=== PATIENT | female | born 1980 | race Caucasian/White ===

== ENCOUNTER 2020-08-05 18:15 | Emergency (ER) | payer BC, SELFPAY ==
--- NOTE | ~2020-08-05 | XR_ITS ---
XR tibia fibula RT 2V DATE: 08/05/2020 18:58 INDICATION: Fall downstairs. Laceration of proximal anterior tibia and fibula. Bruising. TECHNIQUE: AP and lateral views COMPARISON: None FINDINGS: There is a prominent laceration of the proximal lower leg at the anterior aspect of the ant erior tibial tuberosity. No radiopaque soft tissue foreign body. No fracture, dislocation, periosteal reaction or bone destruction. Normal alignment at the knee and ankle joints. IMPRESSION: Prominent upper anterior lower leg soft tissue laceration Reviewed, dictated and finalized at location A. ERTY ADJUSTER
--- NOTE | ~2020-08-05 | XR_ITS ---
XR ankle LT min 3V DATE: 08/05/2020 18:58 INDICATION: Fall downstairs. Anterior and lateral tarsal swelling, pain TECHNIQUE: 4 views of left ankle COMPARISON: None FINDINGS: Mild plantar and minimal posterior calcaneal enthesopathy. No fracture or dislocation of the ankle or disruption of the ankle mortise. No periosteal reaction or bone destruction. IMPRESSION: Calcaneal enthesopathy No fracture or dislocation Reviewed, dictated and finalized at location A. ENE OPERATOR
[2020-08-05 18:25] VITALS: BP 185/104; PULSE 109; RESP 16; TEMP 36.9; O2SAT 99
--- NOTE | 2020-08-05 18:38 | ED.LOWEXIN ---
HPI - Extremity Injury (Lower) General Chief Complaint: Extremity Injury, Lower Stated Complaint: right lower leg lac and left ankle injury Time Seen by Provider: 08/05/20 18:39 Source: patient and RN notes reviewed Mode of arrival: ambulatory Limitations: no limitations History of Present Illness HPI Narrative: 37 year old female who presents to [facility] care with complaints of falling down 3 steps going from kitchen area to garage within the past 45 minutes at her home. Ptient has injury to the left lateral ankle with some edema noted to lateral region of left foot an ankle, mobility of ankle intact but with pain. strong left pedal an posterior tibial pulses present with foot warm and pink. Patient has 5.5cm laceration to her right lower leg below her patella with bleeding presently controlled with abrasions noted to dorsal aspect of her lower leg, patient has full mobility of her knee. Patient reports that her tetanus is up to date. Patient denies any other injury did not hit her head and denies any LOC. MD complaint: knee injury (RIGHT KNEE) and ankle injury (LEFT) Onset (ago): hour(s) (within past 45 minutes prior to arrival) Type of Injury: laceration and other Place: home Severity scale (1-10): 5 Relieving factors: rest Exacerbating factors: weight bearing and movement Context: fall (down three steps) and direct blow Treatments prior to arrival: bandage Related Data Home Medications Medication Instructions Recorded Confirmed losartan-hydrochlorothiazide 1 tablet PO DAILY 08/05/20 08/05/20 Allergies Allergy/AdvReac Type Severity Reaction Status Date / Time Penicillins Allergy Intermediate Hives / Unverified 11/03/18 17:12 Red Face amoxicillin Allergy Unknown Hives Verified 08/05/20 18:42 Cephalosporins Allergy Unknown RASH Unverified 11/03/18 17:12 Review of Systems Review of Systems: Narrative: CONSTITUTIONAL: Denies fever, chills, or sweats. EYES: Denies visual changes, redness, or discharge. ENT: Denies rhinorrhea, congestion, sore throat, or otalgia. CARDIOVASCULAR: Denies chest pain, palpitations, or edema. RESPIRATORY: Denies cough or dyspnea. GASTROINTESTINAL: Denies abdominal pain, nausea, vomiting, or diarrhea. GENITOURINARY: Denies dysuria or hematuria. SKIN: Denies rash or itching Laceration to area below right knee with abrasions on anterior lower leg. Pain to left lateral ankle with small area of swelling, no deformity. with strong pulses MUSCULOSKELETAL: Denies back pain, joint pain, or myalgia. NEUROLOGIC: Denies headache, numbness, or weakness. PSYCHIATRIC: Denies anxiety or depression. All systems reviewed & are unremarkable except as noted in HPI and below PMFSH Past Medical History Medical History (Updated 08/06/20 @ 00:00 by David Gomez) Hypertension Right flank mass Surgical History Surgical History (Updated 08/05/20 @ 19:02 by Mary Pat NP) History of tubal ligation Family History Family History (Updated 08/05/20 @ 19:03 by Mary Pat NP) Mother Carcinoma of colon Hypertension Heart disease Grandparent Heart disease Social History Social History (Updated 08/05/20 @ 18:53 by Mary Pat NP) Smoking packs per day: 0.5 Smoking cigarettes per day: 10.0 Years smoked: 11 Smoking pack-years: 5.50 Smoking status: Current every day smoker Tobacco type: cigarettes Alcohol intake: current Alcohol use details: social Substance use: never Living arrangements: with family Gender identity (if verbalized by the patient): Female Comments At time of signature, agree with nursing past medical, surgical, social and family history. There is no relevant family history pertinent to the presenting complaint Exam Narrative: Exam Narrative: GENERAL: Well-appearing, well-nourished, and in some acute distress due to injuries and pain. HEAD: Normocephalic, atraumatic. EYES: PERRLA and EOMI. ENT: Nares clear, no rhinorrhea or epistaxis.
[2020-08-05 18:43] VITALS: BP 185/104; PULSE 109; RESP 16; TEMP 36.9; O2SAT 99
== END 2020-08-05 19:58 | disposition home or self-care (01) ==
PROVIDERS: Emergency Provider Registered Nurse; PCP Nurse Practitioner Family
DX: S93.402A Sprain of unspecified ligament of left ankle, initial encounter (principal); S96.912A Strain of unspecified muscle and tendon at ankle and foot level, left foot, initial encounter; W10.9XXA Fall (on) (from) unspecified stairs and steps, initial encounter; S81.011A Laceration without foreign body, right knee, initial encounter; F17.210 Nicotine dependence, cigarettes, uncomplicated; I10 Essential (primary) hypertension
CPT/HCPCS: 12002; 73590; 73610; 99214; G0463

== ENCOUNTER 2021-06-14 19:06 | Emergency (ER) | payer OTHER, SELFPAY ==
[2021-06-14 19:12] VITALS: BP 150/79; PULSE 108; RESP 16; TEMP 36.6; O2SAT 100
[2021-06-14 19:28] VITALS: BP 150/79; PULSE 108; RESP 16; TEMP 36.6; O2SAT 100
--- NOTE | 2021-06-14 19:47 | ED.GENADULT ---
HPI - General Adult General Chief complaint: Skin/Abscess/Foreign Body Stated complaint: possible shingles Source: patient Mode of arrival: ambulatory Limitations: no limitations History of Present Illness HPI narrative: Mrs Morales is a pleasant 40 y/o female. Presents to [facility] this evening with acute complaints of a painful rash located to her RT upper torso. Client reports to have been exposed to her Mother whom has been diagnosed with 'Shingles'. She tells me that her symptoms started this AM as a prodromal effect, she began experiencing a 'burning and stinging' sensation, and now increased pain to areas. Worse with touch. No neurological disruption. No ocular or facial involvement. She denies fever, chills, myalgias. No additional acute c/o illness upon PE. Related Data Home Medications Medication Instructions Recorded Confirmed losartan-hydrochlorothiazide 1 tablet PO DAILY 08/05/20 06/14/21 Allergies Allergy/AdvReac Type Severity Reaction Status Date / Time Penicillins Allergy Intermediate Hives / Verified 06/14/21 19:28 Red Face amoxicillin Allergy Unknown Hives Verified 06/14/21 19:28 Cephalosporins Allergy Unknown RASH Verified 06/14/21 19:28 Review of Systems Review of Systems: CONSTITUTIONAL: Denies fever, chills, sweats. EYES: Denies visual changes, redness, discharge. ENT: Denies rhinorrhea, congestion, sore throat, otalgia. CARDIOVASCULAR: Denies chest pain, palpitations, edema. RESPIRATORY: Denies dyspnea, wheezing, cough GASTROINTESTINAL: Denies abdominal pain, nausea, vomiting, diarrhea. GENITOURINARY: Denies dysuria, hematuria, abnormal discharge SKIN: Painful Rash RT side Torso. MUSCULOSKELETAL: Denies acute back pain, joint pain, or myalgia. NEUROLOGIC: Denies numbness, or focal weakness. PSYCHIATRIC: Denies anxiety or depression. All systems reviewed & are unremarkable except as noted in HPI and below PMFSH Past Medical History Medical History Hypertension Right flank mass Surgical History Surgical History History of tubal ligation Family History Family History Mother Carcinoma of colon Hypertension Heart disease Grandparent Heart disease Social History Social History Smoking packs per day: 0.5 Smoking cigarettes per day: 10.0 Years smoked: 11 Smoking pack-years: 5.50 Smoking status: Current every day smoker Tobacco type: cigarettes Alcohol intake: current Alcohol use details: social Substance use: never Gender identity (if verbalized by the patient): Female Exam Narrative: GENERAL: This is a well-nourished, well-developed adult, in no apparent distress. HEAD: normocephalic, atraumatic. EYES: PERRL. Sclera clear/white. EARS: External ears normal, auditory canals clear and without drainage, TMs normal. NOSE: External nose normal. No Rhinorrhea, no obstruction, nares patent. THROAT: Mucous membranes moist, posterior pharynx clear. No exudates. NECK: Neck supple, non-tender without lymphadenopathy, masses or thyromegaly. CARDIOVASCULAR: Regular rate and rhythm without murmurs, gallops, or rubs. RESPIRATORY: Clear to auscultation. Breath sounds equal bilaterally. No wheezes, rales, or rhonchi. GASTROINTESTINAL: Abdomen soft, non-tender, nondistended. Bowel sounds are active. No guarding. SKIN: warm, intact. With pain and red rash located to unilateral LT torso. There are a few small fluid-filled blisters. Areas follow T6-7 dermatomes. No open areas or discharge. No additional integumentary concerns. NEURO: Alert, active, and age appropriate. No focal neurologic deficits. Course Vital Signs Vital signs: Vital Signs Temperature 36.6 C 06/14/21 19:12 Pulse Rate 108 H 06/14/21 19:12 Re
== END 2021-06-14 19:52 | disposition home or self-care (01) ==
PROVIDERS: Emergency Provider Nurse Practitioner Adult Health; PCP Nurse Practitioner Family
DX: B02.9 Zoster without complications (principal); I10 Essential (primary) hypertension; F17.210 Nicotine dependence, cigarettes, uncomplicated
CPT/HCPCS: 99213; G0463